=== PATIENT | male | born 1955 | race Asian ===

== ENCOUNTER → 2017-07-03 | Outpatient (CLI) | payer BC ==
[~2017-07-03] MED LIST: ADVIL200 M3 PO; LIPITOR20 MG PO; MAPAP500 MG PO; MECLIZINE HCL25 M1 PO; NOHOMEMEDICATIONS; VALIUM2 MG PO; ZOFRAN4 MG PO
== END ==
LOC: NUC 05:41
DX: M99.88 Other biomechanical lesions of rib cage (principal); Z85.51 Personal history of malignant neoplasm of bladder

== ENCOUNTER → 2017-08-28 | Outpatient (CLI) | payer BC | LOC: PET 08-14 17:03 | DX: R93.7 Abnormal findings on diagnostic imaging of other parts of musculoskeletal system (principal); Z85.51 Personal history of malignant neoplasm of bladder ==